=== PATIENT | male | born 1945 | race Hispanic/Latino ===

== ENCOUNTER 2017-07-03 12:29 | Observation (INO) | payer MEDICARE, OTHER ==
[2017-07-03 12:29] VITALS: BMI 16.7
--- NOTE | 2017-07-03 13:22 | RAD ---
HISTORY: CP, hx trach COMPARISON: Chest radiograph dated 03/26/2017. TECHNIQUE: Chest PA and lateral FINDINGS: LUNGS: Biapical pleural parenchymal scarring. Hyperinflated lungs. No focal consolidation. PLEURA: No significant pleural effusion identified. No pneumothorax apparent. CARDIOVASCULAR: Atherosclerotic aortic calcifications. Cardiomediastinal silhouette within normal limits. OSSEOUS STRUCTURES: Unchanged. VISUALIZED UPPER ABDOMEN: Normal. OTHER FINDINGS: None. IMPRESSION: No active disease.
[2017-07-03 13:27] LABS: BASO # 0.2 K/uL (0.0-0.2); BASO % 1.4 % (0.0-2.0); EOS # 0.1 K/uL (0.0-0.7); EOS % 0.6 % (0.0-4.0); HEMOGLOBIN 12.3 g/dL (12.0-18.0); LYMPH # 0.7 K/uL (1.0-4.3); LYMPH % 5.7 % (20.0-40.0); MEAN CELL VOLUME 98.2 fl (80.0-94.0); MEAN CORPUSCULAR HEMOGLOBIN 33.4 pg (27.0-31.0); MEAN PLATELET VOLUME 7.9 fl (7.2-11.7); MONO # 0.8 K/uL (0.0-0.8); MONO % 7.1 % (0.0-10.0); NEUT # 10.2 K/uL (1.8-7.0); NEUT % 85.2 % (50.0-75.0); PLATELET COUNT 250 K/uL (130-400); RBC 3.69 Mil/uL (4.40-5.90); RED CELL DISTRIBUTION WIDTH 16.1 % (11.5-14.5)
[2017-07-03 13:48] LABS: INR 1.2 (0.9-1.2); PARTIAL THROMBOPLASTIN TIME 28.5 Seconds (25.6-37.1); PROTHROMBIN TIME 13.4 Seconds (9.8-13.1)
[2017-07-03 14:36] LABS: EOSINOPHIL 1 % (0-7); LYMPHOCYTE 2 % (20-50); MONOCYTE 7 % (0-10); NEUTROPHIL 90 % (42-75); PLATELET ESTIMATE NORMAL (NORMAL); TOTAL CELLS COUNTED 100
[2017-07-03 14:37] LABS: ANISOCYTOSIS SLIGHT
[2017-07-03 14:39] LABS: OVALOCYTES SLIGHT; TOXIC GRANULATION PRESENT
[2017-07-03 15:02] LABS: SQUAMOUS EPITHIAL < 1 /hpf (0-5); URINE BILIRUBIN NEGATIVE (NEGATIVE); URINE BLOOD NEGATIVE (NEGATIVE); URINE CLARITY SLIGHTY-CLOUDY (Clear); URINE COLOR YELLOW (YELLOW); URINE GLUCOSE (UA) NEG (Normal); URINE LEUKOCYTE ESTERASE NEG Leu/uL (Negative); URINE NITRATE NEGATIVE (NEGATIVE); URINE PROTEIN NEGATIVE (NEGATIVE); URINE UROBILINOGEN 0.2-1.0 mg/dL (0.2-1.0)
--- NOTE | 2017-07-03 15:26 | ED PDOC ---
HPI: Chest Pain Time Seen by Provider: 07/03/17 12:40 Chief Complaint (Nursing): Chest Pain Chief Complaint (Provider): chest pain History Per: Patient History/Exam Limitations: no limitations Onset/Duration Of Symptoms: Intermittent Episodes Current Symptoms Are (Timing): Still Present Additional Complaint(s): Christopher Power, a 71 year old male who has a past medical history of pharyngeal cancer and chronic obstructive pulmonary disease presents to the Emergency Department with intermittent chest pain onset one week ago. Reports pain worsens with deep breaths and he feels relief with rest. Patient also has prior myocardial infarction hypertension. Of note: patient is post status tracheostomy PMD: Dr. Cronin Past Medical History Reviewed: Historical Data, Nursing Documentation, Vital Signs Vital Signs: Last Vital Signs Temp 98.0 F 07/03/17 12:37 Pulse 92 H 07/03/17 15:40 Resp 16 07/03/17 12:37 BP 148/79 07/03/17 12:37 Pulse Ox 99 07/03/17 15:40 - Medical History PMH: COPD, Depression, Emphysema, HTN, Hypercholesterolemia Denies: HIV, Chronic Kidney Disease, Sexually Transmitted Disease - Surgical History Surgical History: Denies: Pacemaker Other surgeries: Thyroidectomy - Family History Family History: States: Unknown Family Hx - Immunization History Hx Influenza Vaccination: Yes - Home Medications Home Medications: Ambulatory Orders Medication Instructions Recorded Simvastatin 40 mg PO DAILY 07/31/14 Allopurinol [Zyloprim] 100 mg PO Q48H 07/24/16 Aspirin [Aspirin EC] 325 mg PO DAILY 07/24/16 Levothyroxine Sodium [Synthroid] 175 mcg PO DAILY 07/24/16 Omeprazole [Omeprazole] 40 mg PO DAILY 07/24/16 Furosemide [Lasix] 20 mg PO DAILY #30 tablet 07/26/16 Lisinopril 2.5 mg PO DAILY #30 tablet 07/26/16 Metoprolol Succinate 25 mg PO DAILY #30 tab.er.24h 07/26/16 Acetaminophen/Hydrocodone Bi 1 tab PO Q6H PRN 04/12/17 [Vicodin 300 mg-5 mg] - Allergies Allergies/Adverse Reactions: Allergies Allergy/AdvReac Type Severity Reaction Status Date / Time No Known Allergies Allergy Verified 07/03/17 12:36 Review of Systems ROS Statement: Except As Marked, All Systems Reviewed And Found Negative Constitutional: Positive for: Other (no bleeding stoma) Cardiovascular: Positive for: Chest Pain Respiratory: Positive for: Cough (chronic). Negative for: Shortness of Breath Physical Exam - Reviewed Nursing Documentation Reviewed: Yes Vital Signs Reviewed: Yes - Physical Exam Appears: Positive for: Well, Non-toxic, No Acute Distress Head Exam: Positive for: ATRAUMATIC, NORMAL INSPECTION, NORMOCEPHALIC Skin: Positive for: Normal Color, Warm, Dry Eye Exam: Positive for: Normal appearance, EOMI, PERRL ENT: Positive for: Normal ENT Inspection Neck: Positive for: Normal. Negative for: Painless ROM Cardiovascular/Chest: Positive for: Regular Rate, Rhythm, Tachycardia Respiratory: Positive for: Other (lung sound diminished) Gastrointestinal/Abdominal: Positive for: Normal Exam, Bowel Sounds, Soft. Negative for: Tenderness Back: Positive for: Normal Inspection Extremity: Positive for: Normal ROM. Negative for: Deformity, Swelling Neurologic/Psych: Positive for: Alert, Oriented (x3), Other (speaking fenestated ) - Laboratory Results Result Diagrams: 07/03/17 13:15 - ECG ECG: Positive for: Interpreted By Me, Viewed By Me Rate: 92 O2 Sat by Pulse Oximetry: 99 (RA) Pulse Ox Interpretation: Normal Medical Decision Making Medical Decision Making: Time: 12:46 Initial Plan: --EKG --B-type natriuretic peptide --Troponin --CBC --Partial Thromboplastin Time [COAG] --Prothrombin Time [COAG] --Chest X-ray --Nitroglycerin 0.4 mg --Reevaluation Time:12:47 FINDINGS: LUNGS: Biapical pleural parenchymal scarring. Hyperinflated lungs. No focal consolidation. PLEURA: No significant pleural effusion identified. No pneumothorax apparent. CARDIOVASCULAR: Atherosclerotic aortic calcifications. Cardiomediastinal silhouette within normal limits. OSSEOUS STRUCTURES: Unchanged. VISUALIZED UPPER ABDOMEN: Normal. OTHER FINDINGS: None. IMPRESSION: No active disease. Time:12:51 EKG performed shows 92 beats per minute, ST change anterolaterally, and no STEMI. Prior EKG was performed in 2017 Scribe Attestation: Documented by Indy Aviles, acting as a scribe for Mario Jensen MD Provider Scribe Attestation: All medical record entries made by the Scribe were at my direction and personally dictated by me. I have reviewed the chart and agree that the record accurately reflects my personal performance of the history, physical exam, medical decision making, and the department course for this patient. I have also personally directed, reviewed, and agree with the discharge instructions and disposition. Disposition - Disposition
[2017-07-03 15:31] LABS: TROPONIN I 0.018 ng/mL (0.00-0.120)
--- NOTE | 2017-07-03 16:24 | CP.PCM.HP ---
History of Present Illness - History of Present Illness History of Present Illness: CC: Chest pain HPI: The patient is a 71 y/o man with pmh of COPD, HTN, DC, larnygeal cancer, hypothyroidism who presents to ED w/ chest pain. The patient reports left sided axillary pain that started 2-3 days ago, precipitated by hoisting a heavy laundry bag, stabbing in nature, radiating to left shoulder, worsened w/ respiration, alleviated by nothing. The patient took his prescribed medications but nothing alleviated the pain. The patient denies headaches, chest pain, dizziness, SOB, abdominal pain, nausea, vomiting, diarrhea, dysuria , or fever. ED course: vitals: 98.0 F, 92 beats/min, 148/79 mm Hg, resp 16, O2 99% RA CBC w/ differential: 12.0>12.3/36.2<250 B-type natriuretic peptide: 6370 Troponin: 0.0180 Partial Thromboplastin Time: 28.5 Prothrombin Time: 13.4 INR: 1.2 EKG: NSR, no ST elevation/depression, no prolonged QT, QRS, or [place], no T wave inversion, previous septal infarct Chest X-ray: no active disease Given Nitroglycerin 0.4 mg Given aspirin 81 mg PMD: Dr. Lopez PMH: COPD, HTN, DC, laryngeal cancer, hypothyroidism allergies: NKDA meds: see med list PSH: appendectomy in childhood, thyroidectomy, tracheostomy 19 yrs ago Fam: non-contributory SOC: quit smoking 19 years ago, denies alcohol and drugs ROS: 12 points reviewed and assessed and negative unless otherwise reported in the HPI Present on Admission - Present on Admission Any Indicators Present on Admission: No History of DVT/PE: No History of Uncontrolled Diabetes: No Urinary Catheter: No Decubitus Ulcer Present: No Review of Systems - Review of Systems All systems: reviewed and no additional remarkable complaints except - Constitutional Constitutional: absent: Chills, Fever, Weakness - EENT Eyes: absent: Change in Vision - Cardiovascular Cardiovascular: As Per HPI, Chest Pain. absent: Diaphoresis, Leg Edema, Palpitations, Pedal Edema - Respiratory Respiratory: As Per HPI, Pain on Inspiration. absent: Cough, Dyspnea, Wheezing - Gastrointestinal Gastrointestinal: absent: Abdominal Pain, Nausea, Vomiting - Genitourinary Genitourinary: absent: Dysuria - Integumentary Integumentary: absent: Rash Past Patient History - Past Medical History & Family History Past Medical History?: Yes - Past Social History Smoking Status: Former Smoker - CARDIAC Hx Hypercholesterolemia: Yes Hx Hypertension: Yes Hx Pacemaker: No - PULMONARY Hx Chronic Obstructive Pulmonary Disease (COPD): Yes Hx Emphysema: Yes - NEUROLOGICAL Hx Paralysis: No - HEENT Hx HEENT Problems: No - RENAL Hx Chronic Kidney Disease: No - ENDOCRINE/METABOLIC Hx Endocrine Disorders: No Other/Comment: Thyroid CA - HEMATOLOGICAL/ONCOLOGICAL Hx Human Immunodeficiency Virus (HIV): No - INTEGUMENTARY Hx Dermatological Problems: No - MUSCULOSKELETAL/RHEUMATOLOGICAL Hx Musculoskeletal Disorders: Yes - GASTROINTESTINAL Hx Gastrointestinal Disorders: No - GENITOURINARY/GYNECOLOGICAL Hx Sexually Transmitted Disorders: No - PSYCHIATRIC Hx Depression: Yes - SURGICAL HISTORY Hx Surgeries: Yes Hx Thyroidectomy: Yes Other/Comment: Laryx surgery/removal /thyroidectomy 19 years ago - ANESTHESIA Hx Anesthesia Reactions: No Hx Malignant Hyperthermia: No Meds Allergies/Adverse Reactions: Allergies Allergy/AdvReac Type Severity Reaction Status Date / Time No Known Allergies Allergy Verified 07/03/17 12:36 Physical Exam - Constitutional Appears: No Acute Distress - Head Exam Head Exam: ATRAUMATIC, NORMAL INSPECTION, NORMOCEPHALIC - Eye Exam Eye Exam: Normal appearance - ENT Exam ENT Exam: Mucous Membranes Moist - Neck Exam Neck exam: Positive for: Full Rom. Negative for: Tenderness Additional comments: s/p tracheostomy - Respiratory Exam Respiratory Exam: Clear to Auscultation Bilateral. absent: Rales, Rhonchi, Wheezes, Respiratory Distress - Cardiovascular Exam Cardiovascular Exam: REGULAR RHYTHM. absent: Tachycardia Additional comments: chest wall pain reproducible w/ palpation on left axillary side - GI/Abdominal Exam GI & Abdominal Exam: Normal Bowel Sounds, Soft. absent: Distended, Tenderness - Extremities Exam Extremities exam: Negative for: calf tenderness, pedal edema, tenderness - Neurological Exam Neurological exam: Alert, Oriented x3 - Skin Skin Exam: Dry, Normal Color, Warm Results - Vital Signs Recent Vital Signs: Last Vital Signs Temp 98.0 F 07/03/17 12:37 Pulse 92 H 07/03/17 15:37 Resp 16 07/03/17 12:37 BP 148/79 07/03/17 12:37 Pulse Ox 99 07/03/17 15:37 - Labs Result Diagrams: 07/03/17 13:15 Labs: Laboratory Results - last 24 hr 07/03/17 07/03/17 07/03/17 12:54 13:15 13:15 WBC 12.0 H RBC 3.69 L Hgb 12.3 Hct 36.2 MCV 98.2 H D MCH 33.4 H MCHC 34.0 RDW 16.1 H Plt Count 250 MPV 7.9 Neut % (Auto) 85.2 H Lymph % (Auto) 5.7 L Lander % (Auto) 7.1 Eos % (Auto) 0.6 Baso % (Auto) 1.4 Neut # (Auto) 10.2 H Lymph # (Auto) 0.7 L Lander # (Auto) 0.8 Eos # (Auto) 0.1 Baso # (Auto) 0.2 Neutrophils % (Manual) 90 H Lymphocytes % (Manual) 2 L Monocytes % (Manual) 7 Eosinophils % (Manual) 1 Toxic Granulation Present Platelet Estimate Normal Anisocytosis (manual) Slight Macrocytosis (manual) Slight Ovalocytes Slight PT 13.4 H INR 1.2 APTT 28.5 POC Glucose (mg/dL) 96 Troponin I NT-Pro-B Natriuret Pep Urine Color Urine Clarity Urine pH Ur Specific Byers Urine Protein Urine Glucose (UA) Urine Ketones Urine Blood Urine Nitrate Urine Bilirubin Urine Urobilinogen Ur Leukocyte Esterase Urine RBC (Auto) Urine Microscopic WBC Ur Squamous Epith Cells Hyaline Casts 07/03/17 07/03/17 14:00 14:15 WBC RBC Hgb Hct MCV MCH MCHC RDW Plt Count MPV Neut % (Auto) Lymph % (Auto) Lander % (Auto) Eos % (Auto) Baso % (Auto) Neut # (Auto) Lymph # (Auto) Lander # (Auto) Eos # (Auto) Baso # (Auto) Neutrophils % (Manual) Lymphocytes % (Manual) Monocytes % (Manual) Eosinophils % (Manual) Toxic Granulation Platelet Estimate Anisocytosis (manual) Macrocytosis (manual) Ovalocytes PT INR APTT POC Glucose (mg/dL) Troponin I 0.0180 NT-Pro-B Natriuret Pep 6370 H Urine Color Yellow Urine Clarity Slighty-cloudy Urine pH 5.0 Ur Specific Byers 1.016 Urine Protein Negative Urine Glucose (UA) Neg Urine Ketones Negative Urine Blood Negative Urine Nitrate Negative Urine Bilirubin Negative Urine Urobilinogen 0.2-1.0 Ur Leukocyte Esterase Neg Urine RBC (Auto) 1 Urine Microscopic WBC 1 Ur Squamous Epith Cells < 1 Hyaline Casts 11-20 H Assessment & Plan - Assessment and Plan (Free Text) Assessment: The patient is a 71 y/o man with pmh of COPD, HTN, DC, larnygeal cancer, hypothyroidism who presents to ED w/ chest pain. Plan: Chest pain r/o ACS, most likely strained left oblique muscle - has history of DC, follows Dr. Magallon for cardio - EKG shows no acute changes - CXR shows no active disease - B-type natriuretic peptide: 6370 - Troponin: 0.0180 - pain located left axillary w/ radiation to shoulder worsened w/ respiration - admit to tele for observation HTN - controlled w/ medication Hypothyroidism - controlled w/ synthroid COPD - former smoker laryngeal cancer - s/p tracheostomy 19 years ago
--- NOTE | 2017-07-03 17:14 | ED PDOC ---
- Laboratory Results Result Diagrams: 07/03/17 13:15 - ECG O2 Sat by Pulse Oximetry: 99 (RA) Disposition - Clinical Impression Clinical Impression: Chest pain - POA Present On Arrival: None - Disposition Disposition: Hospitalized as Observation Patient Disposition Time: 17:00 Condition: FAIR
[2017-07-03 17:41] LABS: ALT/SGPT 26 U/L (21-72); AST/SGOT 43 U/L (17-59); BLOOD UREA NITROGEN 23 mg/dl (9-20); CALCIUM 9.7 mg/dL (8.4-10.2); GFR AFRICAN-AMERICAN > 60; GFR NON-AFRICAN AMERICAN 60
[2017-07-04 05:27] VITALS: TEMP 98
[2017-07-04] MEDS ORDERED: Levothyroxine 175 MCG TAB PO SCH (06:30)
[2017-07-04 08:24] VITALS: BP 167/79; PULSE 81; RESP 20; O2SAT 98
[2017-07-04 08:54] LABS: BASO # 0.1 K/uL (0.0-0.2); BASO % 0.7 % (0.0-2.0); EOS # 0.2 K/uL (0.0-0.7); EOS % 3.1 % (0.0-4.0); HEMOGLOBIN 10.7 g/dL (12.0-18.0); LYMPH # 0.7 K/uL (1.0-4.3); LYMPH % 9.8 % (20.0-40.0); MEAN CELL VOLUME 98.6 fl (80.0-94.0); MEAN CORPUSCULAR HEMOGLOBIN 33.4 pg (27.0-31.0); MEAN CORPUSCULAR HGB CONC 33.8 g/dL (33.0-37.0); MEAN PLATELET VOLUME 7.3 fl (7.2-11.7); MONO # 0.7 K/uL (0.0-0.8); MONO % 9.2 % (0.0-10.0); NEUT # 5.8 K/uL (1.8-7.0); NEUT % 77.2 % (50.0-75.0); RBC 3.21 Mil/uL (4.40-5.90); RED CELL DISTRIBUTION WIDTH 15.8 % (11.5-14.5); WHITE BLOOD COUNT 7.5 K/uL (4.8-10.8)
[2017-07-04] MEDS ORDERED: Enoxaparin 40 mg Syringe SC SCH (09:00)
[2017-07-04] MEDS ORDERED: Metoprolol Succinate 25 mg XL Tab PO SCH (09:00)
[2017-07-04 09:07] LABS: ALBUMIN 3.2 g/dL (3.5-5.0); ALT/SGPT 25 U/L (21-72); AST/SGOT 29 U/L (17-59); BLOOD UREA NITROGEN 28 mg/dl (9-20); CALCIUM 9.1 mg/dL (8.4-10.2); GFR AFRICAN-AMERICAN > 60; GFR NON-AFRICAN AMERICAN 60
--- NOTE | 2017-07-04 10:23 | CP.PCM.CON ---
History of Present Illness - History of Present Illness History of Present Illness: This 71-year-old man came to the emergency room complaining of pain in the left infra-axillary and left hypochondrial area for last 3 days following an attempt to lift and heavy object and carry it. Since then attempt to take a deep breath or cough causes significant pain in this area this is accompanied by tenderness in this area as well. The patient has a long medical history that includes stable coronary artery disease and a history of prior myocardial infarction more than 8-10 years back. He had had leading ectomy for laryngeal cancer more than 10 years back and there has been no recurrence. He is an ex-smoker with significant COPD and hypothyroidism which is corrected with oral thyroid replacement. Physical examination shows a thin built elderly chronically sick-looking man alert awake coherent afebrile and anxious and being hospitalized. He is a pulse rate of 68 bpm and regular while on a beta francisco and his blood pressure was 124/74 mmHg. His jugular venous pressure was not elevated and there was no edema over his lower extremity. His pedal pulses were feeble but distinct represent. There were no carotid bruits. There was tenderness in the left axillary area. The apex was in the 6 to heaving in character with a normal first and second heart sound with a brief systolic murmur at the apex. There were coarse crepitations but no rales. His abdomen was soft liver and spleen are not palpable. His electro-cardiogram showed sinus rhythm with poor progression of R wave from V1 to V2 to V3. There were no jennifer Q waves on his electrocardiogram. His troponin levels were normal. His proBNP was elevated as expected with a history of prior myocardial infarction and depressed left ventricular systolic function as documented by echocardiograms of July 2016 and before that in 2014. : Impression: Chest wall pain because of muscular sprain. Stable coronary artery disease. COPD. Status post laryngectomy for laryngeal malignancy. The patient is hemodynamically stable with a stable sinus rhythm on telemetry overnight. I have discussed this case with the residents and the patient may be allowed to return home on an analgesics. I have explained to the patient the benign nature of this pain. Past Patient History - Past Medical History & Family History Past Medical History?: Yes - Past Social History Smoking Status: Former Smoker - CARDIAC Hx Cardiac Disorders: Yes Hx Heart Attack: Yes Hx Hypertension: Yes Hx Pacemaker: No - PULMONARY Hx Respiratory Disorders: No - NEUROLOGICAL Hx Neurological Disorder: No Hx Paralysis: No - HEENT Hx HEENT Problems: Yes Hx Cataracts: Yes - RENAL Hx Chronic Kidney Disease: No - ENDOCRINE/METABOLIC Hx Endocrine Disorders: No Other/Comment: Thyroid CA - HEMATOLOGICAL/ONCOLOGICAL Hx Blood Disorders: No Hx Human Immunodeficiency Virus (HIV): No - INTEGUMENTARY Hx Dermatological Problems: No - MUSCULOSKELETAL/RHEUMATOLOGICAL Hx Musculoskeletal Disorders: Yes Hx Falls: No - GASTROINTESTINAL Hx Gastrointestinal Disorders: No - GENITOURINARY/GYNECOLOGICAL Hx Genitourinary Disorders: No Hx Sexually Transmitted Disorders: No - PSYCHIATRIC Hx Depression: Yes Hx Substance Use: No - SURGICAL HISTORY Hx Surgeries: Yes Hx Cataract Extraction: Yes (x2) Hx Thyroidectomy: Yes Other/Comment: Laryx surgery/removal /thyroidectomy 19 years ago. Appendectomy - ANESTHESIA Hx Anesthesia: Yes Hx Anesthesia Reactions: No Hx Malignant Hyperthermia: No Meds Allergies/Adverse Reactions: Allergies Allergy/AdvReac Type Severity Reaction Status Date / Time No Known Allergies Allergy Verified 07/03/17 12:36 - Medications Medications: Current Medications Atorvastatin Calcium (Lipitor) 20 mg PO DAILY [facility] Last Admin: 07/04/17 10:16 Dose: 20 mg Enoxaparin Sodium (Lovenox) 40 mg SC DAILY [facility] PRN Reason: Protocol Last Admin: 07/04/17 10:14 Dose: Not Given Ibuprofen (Motrin Tab) 400 mg PO Q6 [facility] Last Admin: 07/04/17 10:15 Dose: 400 mg Ketorolac Tromethamine (Toradol) 15 mg IVP Q6 PRN PRN Reason: Pain, moderate (4-7) Levothyroxine Sodium (Synthroid) 175 mcg PO DAILY@0630 [facility] Last Admin: 07/04/17 07:04 Dose: 175 mcg Lisinopril (Zestril) 2.5 mg PO DAILY [facility] Last Admin: 07/04/17 10:15 Dose: 2.5 mg Metoprolol Succinate (Toprol Xl) 25 mg PO DAILY [facility] Last Admin: 07/04/17 10:15 Dose: 25 mg Results - Vital Signs Recent Vital Signs: Last Vital Signs Temp 98.0 F 07/04/17 08:23 Pulse 81 07/04/17 10:15 Resp 20 07/04/17 08:23 BP 167/79 H 07/04/17 10:15 Pulse Ox 98 02/04/18 08:23 - Labs Result Diagrams: 07/04/17 08:01 07/04/17 08:01 Labs: Laboratory Results - last 24 hr 07/03/17 07/03/17 07/03/17 12:54 13:15 13:15 WBC 12.0 H RBC 3.69 L Hgb 12.3 Hct 36.2 MCV 98.2 H D MCH 33.4 H MCHC 34.0 RDW 16.1 H Plt Count 250 MPV 7.9 Neut % (Auto) 85.2 H Lymph % (Auto) 5.7 L Dickinson % (Auto) 7.1 Eos % (Auto) 0.6 Baso % (Auto) 1.4 Neut # (Auto) 10.2 H Lymph # (Auto) 0.7 L Dickinson # (Auto) 0.8 Eos # (Auto) 0.1 Baso # (Auto) 0.2 Neutrophils % (Manual) 90 H Lymphocytes % (Manual) 2 L Monocytes % (Manual) 7 Eosinophils % (Manual) 1 Toxic Granulation Present Platelet Estimate Normal Anisocytosis (manual) Slight Macrocytosis (manual) Slight Ovalocytes Slight PT 13.4 H INR 1.2 APTT 28.5 Sodium Potassium Chloride Carbon Dioxide Anion Gap BUN Creatinine Est GFR ( Amer) Est GFR (Non-Af Amer) POC Glucose (mg/dL) 96 Random Glucose Calcium Total Bilirubin AST ALT Alkaline Phosphatase Troponin I NT-Pro-B Natriuret Pep Total Protein Albumin Globulin Albumin/Globulin Ratio Urine Color Urine Clarity Urine pH Ur Specific Wall Urine Protein Urine Glucose (UA) Urine Ketones Urine Blood Urine Nitrate Urine Bilirubin Urine Urobilinogen Ur Leukocyte Esterase Urine RBC (Auto) Urine Microscopic WBC Ur Squamous Epith Cells Hyaline Casts 07/03/17 07/03/17 07/03/17 14:00 14:15 17:30 WBC RBC Hgb Hct MCV MCH MCHC RDW Plt Count MPV Neut % (Auto) Lymph % (Auto) Dickinson % (Auto) Eos % (Auto) Baso % (Auto) Neut # (Auto) Lymph # (Auto) Dickinson # (Auto) Eos # (Auto) Baso # (Auto) Neutrophils % (Manual) Lymphocytes % (Manual) Monocytes % (Manual) Eosinophils % (Manual) Toxic Granulation Platelet Estimate Anisocytosis (manual) Macrocytosis (manual) Ovalocytes PT INR APTT Sodium 142 Potassium 4.4 Chloride 105 Carbon Dioxide 23 Anion Gap 18 BUN 23 H Creatinine 1.2 Est GFR ( Amer) > 60 Est GFR (Non-Af Amer) 60 POC Glucose (mg/dL) Random Glucose 127 H Calcium 9.7 Total Bilirubin 1.0 AST 43 ALT 26 Alkaline Phosphatase 134 H D Troponin I 0.0180 NT-Pro-B Natriuret Pep 6370 H Total Protein 7.9 Albumin 4.0 Globulin 3.9 Albumin/Globulin Ratio 1.0 Urine Color Yellow Urine Clarity Slighty-cloudy Urine pH 5.0 Ur Specific Wall 1.016 Urine Protein Negative Urine Glucose (UA) Neg Urine Ketones Negative Urine Blood Negative Urine Nitrate Negative Urine Bilirubin Negative Urine Urobilinogen 0.2-1.0 Ur Leukocyte Esterase Neg Urine RBC (Auto) 1 Urine Microscopic WBC 1 Ur Squamous Epith Cells < 1 Hyaline Casts 11-20 H 07/04/17 07/04/17 07/04/17 02:06 08:01 08:01 WBC 7.5 RBC 3.21 L Hgb 10.7 L Hct 31.7 L MCV 98.6 H MCH 33.4 H MCHC 33.8 RDW 15.8 H Plt Count 158 MPV 7.3 Neut % (Auto) 77.2 H Lymph % (Auto) 9.8 L Dickinson % (Auto) 9.2 Eos % (Auto) 3.1 Baso % (Auto) 0.7 Neut # (Auto) 5.8 Lymph # (Auto) 0.7 L Dickinson # (Auto) 0.7 Eos # (Auto) 0.2 Baso # (Auto) 0.1 Neutrophils % (Manual) Lymphocytes % (Manual) Monocytes % (Manual) Eosinophils % (Manual) Toxic Granulation Platelet Estimate Anisocytosis (manual) Macrocytosis (manual) Ovalocytes PT INR APTT Sodium 141 Potassium 4.3 Chloride 106 Carbon Dioxide 28 Anion Gap 11 BUN 28 H Creatinine 1.2 Est GFR ( Amer) > 60 Est GFR (Non-Af Amer) 60 POC Glucose (mg/dL) Random Glucose 93 Calcium 9.1 Total Bilirubin 1.0 AST 29 ALT 25 Alkaline Phosphatase 112 Troponin I 0.0230 NT-Pro-B Natriuret Pep Total Protein 6.5 Albumin 3.2 L Globulin 3.3 Albumin/Globulin Ratio 1.0 Urine Color Urine Clarity Urine pH Ur Specific Wall Urine Protein Urine Glucose (UA) Urine Ketones Urine Blood Urine Nitrate Urine Bilirubin Urine Urobilinogen Ur Leukocyte Esterase Urine RBC (Auto) Urine Microscopic WBC Ur Squamous Epith Cells Hyaline Casts
--- NOTE | 2017-07-04 11:12 | CARD ---
APPROVED REPORT EKG Measurement Heart [id number] <Conclusion> Normal sinus rhythm Left axis deviation Septal infarct, age undetermined Abnormal ECG
--- NOTE | 2017-07-04 11:22 | CARD ---
APPROVED REPORT EKG Measurement Heart [id number] <Conclusion> Normal sinus rhythm Left axis deviation Abnormal ECG
--- NOTE | 2017-07-04 11:25 | CARD ---
APPROVED REPORT EKG Measurement Heart [id number] 142P70 [id number] <Conclusion> Normal sinus rhythm Possible Left atrial enlargement Left axis deviation Septal infarct, age undetermined Abnormal ECG
--- NOTE | 2017-07-04 13:02 | CP.PCM.DIS ---
Provider - Provider Date of Admission: 07/03/17 15:14 Attending physician: Hector Lopez MD Consults: Cardiology Dr Magallon Time Spent in preparation of Discharge (in minutes): 25 Diagnosis - Discharge Diagnosis (1) Chest pain Status: Acute Hospital Course - Lab Results Lab Results: Most Recent Lab Values WBC 7.5 K/uL (4.8-10.8) 07/04/17 08:01 RBC 3.21 Mil/uL (4.40-5.90) L 07/04/17 08:01 Hgb 10.7 g/dL (12.0-18.0) L 07/04/17 08:01 Hct 31.7 % (35.0-51.0) L 07/04/17 08:01 MCV 98.6 fl (80.0-94.0) H 07/04/17 08:01 MCH 33.4 pg (27.0-31.0) H 07/04/17 08:01 MCHC 33.8 g/dL (33.0-37.0) 07/04/17 08:01 RDW 15.8 % (11.5-14.5) H 07/04/17 08:01 Plt Count 158 K/uL (130-400) 07/04/17 08:01 MPV 7.3 fl (7.2-11.7) 07/04/17 08:01 Neut % (Auto) 77.2 % (50.0-75.0) H 07/04/17 08:01 Lymph % (Auto) 9.8 % (20.0-40.0) L 07/04/17 08:01 Hudson % (Auto) 9.2 % (0.0-10.0) 07/04/17 08:01 Eos % (Auto) 3.1 % (0.0-4.0) 07/04/17 08:01 Baso % (Auto) 0.7 % (0.0-2.0) 07/04/17 08:01 Neut # (Auto) 5.8 K/uL (1.8-7.0) 07/04/17 08:01 Lymph # (Auto) 0.7 K/uL (1.0-4.3) L 07/04/17 08:01 Hudson # (Auto) 0.7 K/uL (0.0-0.8) 07/04/17 08:01 Eos # (Auto) 0.2 K/uL (0.0-0.7) 07/04/17 08:01 Baso # (Auto) 0.1 K/uL (0.0-0.2) 07/04/17 08:01 Neutrophils % (Manual) 90 % (42-75) H 07/03/17 13:15 Lymphocytes % (Manual) 2 % (20-50) L 07/03/17 13:15 Monocytes % (Manual) 7 % (0-10) 07/03/17 13:15 Eosinophils % (Manual) 1 % (0-7) 07/03/17 13:15 Toxic Granulation Present 07/03/17 13:15 Platelet Estimate Normal (NORMAL) 07/03/17 13:15 Anisocytosis (manual) Slight 07/03/17 13:15 Macrocytosis (manual) Slight 07/03/17 13:15 Ovalocytes Slight 07/03/17 13:15 PT 13.4 Seconds (9.8-13.1) H 07/03/17 13:15 INR 1.2 (0.9-1.2) 07/03/17 13:15 APTT 28.5 Seconds (25.6-37.1) 07/03/17 13:15 Sodium 141 mmol/l (132-148) 07/04/17 08:01 Potassium 4.3 MMOL/L (3.6-5.0) 07/04/17 08:01 Chloride 106 mmol/L (98-107) 07/04/17 08:01 Carbon Dioxide 28 mmol/L (22-30) 07/04/17 08:01 Anion Gap 11 (10-20) 07/04/17 08:01 BUN 28 mg/dl (9-20) H 07/04/17 08:01 Creatinine 1.2 mg/dl (0.8-1.5) 07/04/17 08:01 Est GFR ( Amer) > 60 07/04/17 08:01 Est GFR (Non-Af Amer) 60 07/04/17 08:01 POC Glucose (mg/dL) 96 mg/dL (65-110) 07/03/17 12:54 Random Glucose 93 mg/dL (75-110) 07/04/17 08:01 Calcium 9.1 mg/dL (8.4-10.2) 07/04/17 08:01 Total Bilirubin 1.0 mg/dl (0.2-1.3) 07/04/17 08:01 AST 29 U/L (17-59) 07/04/17 08:01 ALT 25 U/L (21-72) 07/04/17 08:01 Alkaline Phosphatase 112 U/L (38-126) 07/04/17 08:01 Troponin I 0.0170 ng/mL (0.00-0.120) 07/04/17 09:34 NT-Pro-B Natriuret Pep 6370 pg/ml (0-900) H 07/03/17 14:15 Total Protein 6.5 G/DL (6.3-8.2) 07/04/17 08:01 Albumin 3.2 g/dL (3.5-5.0) L 07/04/17 08:01 Globulin 3.3 gm/dL (2.2-3.9) 07/04/17 08:01 Albumin/Globulin Ratio 1.0 (1.0-2.1) 07/04/17 08:01 Urine Color Yellow (YELLOW) 07/03/17 14:00 Urine Clarity Slighty-cloudy (Clear) 07/03/17 14:00 Urine pH 5.0 (5.0-8.0) 07/03/17 14:00 Ur Specific Whitman 1.016 (1.003-1.030) 07/03/17 14:00 Urine Protein Negative mg/dL (NEGATIVE) 07/03/17 14:00 Urine Glucose (UA) Neg mg/dL (Normal) 07/03/17 14:00 Urine Ketones Negative mg/dL (NEGATIVE) 07/03/17 14:00 Urine Blood Negative (NEGATIVE) 07/03/17 14:00 Urine Nitrate Negative (NEGATIVE) 07/03/17 14:00 Urine Bilirubin Negative (NEGATIVE) 07/03/17 14:00 Urine Urobilinogen 0.2-1.0 mg/dL (0.2-1.0) 07/03/17 14:00 Ur Leukocyte Esterase Neg Сергей/uL (Negative) 07/03/17 14:00 Urine RBC (Auto) 1 /hpf (0-3) 07/03/17 14:00 Urine Microscopic WBC 1 /hpf (0-5) 07/03/17 14:00 Ur Squamous Epith Cells < 1 /hpf (0-5) 07/03/17 14:00 Hyaline Casts 11-20 /hpf (0-2) H 07/03/17 14:00 - Hospital Course Hospital Course: 71 yo M w PMHx of COPD, HTN, [place] (10 yrs ago), larnygeal cancer, and hypothyroidism was admitted due to left sided chest pain. Pt denies any chest pain or problems breathing. 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 Discharged w instructions to follow up with PMD within 1 week of discharge. Discharge Exam - Head Exam Head Exam: ATRAUMATIC, NORMAL INSPECTION, NORMOCEPHALIC - Eye Exam Eye Exam: EOMI Pupil Exam: PERRL - ENT Exam ENT Exam: Mucous Membranes Moist - Respiratory Exam Respiratory Exam: Clear to PA & Lateral, NORMAL BREATHING PATTERN. absent: Rales, Rhonchi - Cardiovascular Exam Cardiovascular Exam: REGULAR RHYTHM Additional comments: left-sided pain reproducible w palpation - GI/Abdominal Exam GI & Abdominal Exam: Normal Bowel Sounds, Soft - Extremities Exam Additional comments: negative calf tenderness or pedal edema - Neurological Exam Neurological exam: Alert, Oriented x3 Discharge Plan - Follow Up Plan Condition: FAIR Disposition: HOME/ ROUTINE Instructions: Chest Pain (DC), Costochondritis (DC) Additional Instructions: Instructed to see PMD within 1 week of hospital discharge. Be aware of proper lift techniques and lifting appropriate weights. Return to ED if pain returns or if respiratory complaints return/worsen.
== END 2017-07-04 12:03 | disposition home or self-care (01) ==
LOC: H.ER 12:29 → H.ERHOLD 15:14 → H.TEL 18:37
PROVIDERS: ADMIT Family Medicine; ATTEND Family Medicine
DX: R07.9 Chest pain, unspecified (principal); Z85.21 Personal history of malignant neoplasm of larynx; Z85.850 Personal history of malignant neoplasm of thyroid; E03.9 Hypothyroidism, unspecified; E78.00 Pure hypercholesterolemia, unspecified; I10 Essential (primary) hypertension; I25.10 Atherosclerotic heart disease of native coronary artery without angina pectoris; I25.2 Old myocardial infarction; J43.9 Emphysema, unspecified; Z79.82 Long term (current) use of aspirin; Z79.899 Other long term (current) drug therapy; Z85.819 Personal history of malignant neoplasm of unspecified site of lip, oral cavity, and pharynx; Z87.891 Personal history of nicotine dependence; F32.9 Major depressive disorder, single episode, unspecified; M79.629 Pain in unspecified upper arm; R01.1 Cardiac murmur, unspecified
CPT/HCPCS: 36415; 71046; 80053; 81003; 82948; 83880; 84484; 85025; 85610; 85730; 93005; G0378